=== PATIENT | female | born 1980 | race Caucasian/White ===

== ENCOUNTER → 2017-04-28 08:56 | Day surgery (SDC) | payer BC ==
[~2017-04-28 08:56] MED LIST: Acetaminophen TAB* 325 MG PO PRN; Bacitracin OINTMENT* 1 TUBE ONE; Buffered Lidocaine 0.9% SYRIN* 5 ML/SYR SYRINGE INTRADERM ONE; Buffered Lidocaine 0.9% SYRIN* 5 ML/SYR SYRINGE ONE; Ciprofloxacin 0.3% OPTH.SOL* 2.5 ML BTL ONE; Dexamethasone IV* 4 MG/ML 1 ML (4 MG) ONE; DiMENhydriNATE IV* 50 MG/ML VIAL IV PUSH PRN; EPINEPHrine AMP 1 MG/ML ONE; Famotidine IV* 10 MG/ML 2 ML (20 mg) ONE; Gelfoam 12-7 ADSORBABL SPONGE* 1 EA SPONGE ONE; HYDROcodone/ACETAMIN 5-325 MG* 1 TAB PO PRN; Ketorolac INJ* 30 MG/ML 1 ML VIAL ONE; Lidocaine 2% EPI 1:200000 MPF* 20 ML VIAL ONE; Lidocaine 2% PF * 5 ML VIAL ONE; Methylene Blue 0.5 %* 50 MG/10 ML AMP IV ONE; Midazolam* 1 MG/ML 2 ML VIAL (2 MG) ONE; Mivacurium Chloride* 20 MG/10 ML VIAL IV ONE; Ondansetron INJ* 2 MG/ML VIAL IV PRN; Ondansetron INJ* 2 MG/ML VIAL ONE; PROCHLORPERAZINE INJ 5 MG/ML 2 ML VIAL IV PRN; Propofol* 10 MG/ML 20 ML BTL IV PUSH ONE; fentaNYL* 50 MCG/ML 2 ML VIAL (100 MCG VIAL) IV PRN; fentaNYL* 50 MCG/ML 2 ML VIAL (100 MCG VIAL) ONE
[2017-04-28 15:23] VITALS: BP 113/75
--- NOTE | 2017-04-29 04:00 | OP ---
DATE OF OPERATION: 04/28/17 - [facility] DATE OF : 78 SURGEON: Jose G Spencer MD ANESTHESIOLOGIST: Dr. Bustamante ANESTHESIA: General PRE-OP DIAGNOSES: Recurrent cholesteatoma, left ear. POST-OP DIAGNOSIS: Recurrent cholesteatoma, left ear. OPERATIVE PROCEDURE: Canal wall down mastoidectomy, removal of cholesteatoma, total ossicular prosthesis, reconstruction with temporalis and cartilage graft. INDICATIONS: This is a 37-year-old female with previous canal wall up mastoidectomy, unfortunately continued to have recurrence of cholesteatoma, elected for surgical management. DESCRIPTION OF PROCEDURE: The patient was taken to the operating room, general anesthesia was given, the patient was intubated. NIM monitoring was then used. We then prepped and draped the left ear. A curvilinear incision made in the posterior incision, which was done previously. The mastoid was then skeletonized and immediately obvious was a large cholesteatoma pocket. Careful soft tissue resection was carried out and then the drill was used to take the canal wall down due to previous loss of ossicles. The cholesteatoma was then removed off the middle ear. The facial nerve was identified and the canal was taken down all the way to the facial nerve as thinly as closely as possible. A stapes superstructure was absent. I then placed in a total ossicular prosthesis. A small cartilage graft was harvested and placed over it. This was secured in place with some pieces of Gelfoam. A temporalis fascia graft was harvested, laid in the underlay and draped it over the facial ridge. Mastoid was then packed with Gelfoam. Postauricular incision was closed, single layer. Second layer was then applied mastoid dressing. The patient was awakened and sent to recovery room in stable condition. Instrument and sponge counts correct. Blood loss minimal. [id number]/[facility] #: [id number] MTDD
== END | disposition home or self-care (01) ==
LOC: OR 08:56
PROVIDERS: ATTEND Otolaryngology
DX: H95.02 Recurrent cholesteatoma of postmastoidectomy cavity, left ear (principal); E66.9 Obesity, unspecified; Z68.37 Body mass index [BMI] 37.0-37.9, adult; Z87.891 Personal history of nicotine dependence; Z88.1 Allergy status to other antibiotic agents
CPT/HCPCS: 81025; 88304; A9270-GY; J0171; J1100; J1885; J2250; J2405; J2704; J3010